=== PATIENT | female | born 1955 | race Caucasian/White ===

== ENCOUNTER 2020-11-13 13:59 | Emergency (ER) | payer MEDICARE ==
[2020-11-13 14:21] VITALS: BP 164/79
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
[2020-11-13 17:22] LABS: Basophils # (Auto) 0.1 K/mm3 (0.0-0.1); Basophils % (Auto) 0.9 % (0.0-1.8); Eosinophils # (Auto) 0.2 K/mm3 (0.0-0.4); Eosinophils % (Auto) 2.9 % (0.0-4.3); Hematocrit 34.4 % (30.3-42.9); Hemoglobin 11.7 gm/dl (10.1-14.3); Lymphocytes # (Auto) 2.1 K/mm3 (1.2-5.4); Lymphocytes % (Auto) 26.9 % (13.4-35.0); Mean Corpuscular HGB Conc 34 % (30-34); Mean Corpuscular Volume 91 fl (79-97); Monocytes # (Auto) 0.5 K/mm3 (0.0-0.8); Monocytes % (Auto) 6.9 % (0.0-7.3); Platelet Count 298 K/mm3 (140-440); Red Cell Distribution Width 13.5 % (13.2-15.2)
[2020-11-13 17:49] LABS: Alanine Aminotransferase 17 units/L (7-56); Albumin 3.7 g/dL (3.9-5); BUN/Creatinine Ratio 19; Blood Urea Nitrogen 15 mg/dL (7-17); Calcium 9.4 mg/dL (8.4-10.2); Hemolysis Index 4
== END 2020-11-13 22:10 | disposition left against medical advice (07) ==
LOC: ED 13:59
DX: R07.89 Other chest pain (principal); Z53.21 Procedure and treatment not carried out due to patient leaving prior to being seen by health care provider
CPT/HCPCS: 36415; 80053; 83735; 84484; 85025; 85610; 85730

== ENCOUNTER 2020-11-14 09:01 | Emergency (ER) | payer MEDICARE ==
[2020-11-14 09:59] VITALS: BP 135/76
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
== END 2020-11-14 12:45 | disposition home or self-care (01) ==
LOC: ED 09:01
DX: S39.012A Strain of muscle, fascia and tendon of lower back, initial encounter (principal); S20.219A Contusion of unspecified front wall of thorax, initial encounter; S70.01XA Contusion of right hip, initial encounter; Z79.899 Other long term (current) drug therapy; V49.69XA Unspecified car occupant injured in collision with other motor vehicles in traffic accident, initial encounter; Y93.89 Activity, other specified; Y92.410 Unspecified street and highway as the place of occurrence of the external cause; Y99.8 Other external cause status
CPT/HCPCS: 71046; 72100; 72170

== ENCOUNTER 2020-11-19 12:57 | Emergency (ER) | payer SELFPAY ==
[2020-11-19 13:50] VITALS: BP 143/77
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
--- NOTE | 2020-11-19 14:33 | XRay Report ---
XR chest routine 2V INDICATION / CLINICAL INFORMATION: CP. COMPARISON: 11/14/2020 FINDINGS: SUPPORT DEVICES: None. HEART /PULMONARY VASCULATURE: No significant abnormality. LUNGS / PLEURA: No significant pulmonary or pleural abnormality. No pneumothorax. ADDITIONAL FINDINGS: No significant additional findings. IMPRESSION: 1. No acute findings. Signer Name: Bereket Akhtar MD Signed: 11/19/2020 2:29 PM Workstation Name: [id number]
[2020-11-19 14:56] LABS: Basophils % (Auto) 0.6 % (0.0-1.8); Eosinophils # (Auto) 0.2 K/mm3 (0.0-0.4); Hematocrit 35.9 % (30.3-42.9); Hemoglobin 12.2 gm/dl (10.1-14.3); Lymphocytes # (Auto) 2.2 K/mm3 (1.2-5.4); Lymphocytes % (Auto) 28.5 % (13.4-35.0); Mean Corpuscular HGB Conc 34 % (30-34); Mean Corpuscular Volume 91 fl (79-97); Monocytes # (Auto) 0.6 K/mm3 (0.0-0.8); Platelet Count 384 K/mm3 (140-440); Red Blood Count 3.96 M/mm3 (3.65-5.03); Red Cell Distribution Width 13.9 % (13.2-15.2)
[2020-11-19 15:21] LABS: Alanine Aminotransferase 14 units/L (7-56); BUN/Creatinine Ratio 19; Blood Urea Nitrogen 15 mg/dL (7-17); Calcium 9.2 mg/dL (8.4-10.2); Hemolysis Index 7
[2020-11-19] MEDS ORDERED: ACETAMINOPHEN W/CODEINE 300-30 MG TAB PO ONE (21:01)
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
--- NOTE | 2020-11-20 17:11 | Electrocardiograph Report ---
[facility] Test Date: 2020-11-19 Test Time: 14:36:32 Pat Name: MARIA LUISA CORDERO Department: Room: Gender: F Bi Data Architect: SANDEEP : [id number] Requested By: VIRI AVALOS Order Number: [id number] Reading MD: Bruce Parsons Measurements Intervals Ponder Rate: 78 P: 81 WI: 158 QRS: 74 QRSD: 102 T: 81 QT: 381 QTc: 434 Interpretive Statements Sinus rhythm Probable left ventricular hypertrophy Nonspecific T abnrm, anterolateral leads No previous ECG available for comparison Electronically Signed On 11-20-2020 17:10:44 EDT by Bruce Parsons
== END 2020-11-19 23:50 | disposition home or self-care (01) ==
LOC: ED 12:57
DX: R07.89 Other chest pain (principal); Z79.899 Other long term (current) drug therapy
CPT/HCPCS: 36415; 71046; 80053; 83880; 84484; 85025; 93005